=== PATIENT | female | born 1955 | race Caucasian/White ===

== ENCOUNTER → 2017-07-08 | Outpatient (CLI) | payer OTHER ==
--- NOTE | 2017-07-08 12:05 | Diagnostic Imaging Report ---
PROCEDURE: Frontal and lateral views of the chest. COMPARISON: None. INDICATIONS: BRONCHITIS, COUGH FINDINGS: Lines/tubes: None. Lungs: The lungs are well inflated and clear. There is no evidence of pneumonia or pulmonary edema. Pleura: There is no pleural effusion or pneumothorax. Heart and mediastinum: The heart and the mediastinum are normal. Bones: No acute bony abnormality. Partially imaged cervical spine fusion hardware. IMPRESSION: 1. No acute cardiopulmonary disease. Dictated by: Dayton Polk M.D. on 07/08/2017 at 12:14 Electronically approved by: Dayton Polk M.D. on 07/08/2017 at 12:14
== END ==
LOC: MAMMO 11:27
PROVIDERS: ATTEND Internal Medicine
DX: Z12.31 Encounter for screening mammogram for malignant neoplasm of breast (principal); J40 Bronchitis, not specified as acute or chronic
CPT/HCPCS: 71020; G0202

== ENCOUNTER → 2017-11-07 | Outpatient (CLI) | payer OTHER ==
--- NOTE | 2017-11-07 19:19 | Diagnostic Imaging Report ---
PROCEDURE:C-SPINE AP AND LAT WITH FLEX AND EXT COMPARISON:None. INDICATIONS:EVALUATE FUSION STATUS FINDINGS: The cervical spine is visualized in the lateral view from the skull base to T1. Status post anterior fusion of C5-C7 with intact plate and screw construct. No associated lucencies. Likely, intervertebral disc spacers, with significant fusion.. The vertebral bodies are well-aligned without significant spondylolisthesis. There are no fractures, lytic or blastic lesions. Minimal 1 mm anterolisthesis of C4 on C5 only seen on the flexion view. Vertebral body heights are maintained.. The C1/C2-odontoid interval is normal. The pre-vertebral soft tissues are normal. CONCLUSION: Status post anterior fusion C5-C7 with intact hardware and evidence of fusion. Minimal 1 mm anterolisthesis of C4 on C5 only seen on the flexion view. Blasie Raygoza M.D. Dictated by: Blaise Raygoza M.D. on 11/07/2017 at 19:21 Electronically approved by: Blaise Raygoza M.D. on 11/07/2017 at 19:21
== END ==
LOC: RAD 11:50
PROVIDERS: ATTEND Neurological Surgery
CPT/HCPCS: 72050

== ENCOUNTER → 2018-04-02 | Outpatient (CLI) | payer OTHER ==
--- NOTE | 2018-04-02 14:00 | Diagnostic Imaging Report ---
EXAM: XR CHEST 2 VIEWS DATE: 04/02/2018 1:14 PM INDICATION: Cough COMPARISON: None FINDINGS: Lines and Tubes: None Heart and Mediastinum: No acute cardiomediastinal findings. Lungs and Pleura: Ill-defined opacity left lung base. Bones and Soft Tissues: Cervical orthopedic hardware. IMPRESSION: 1. Ill-defined opacity left lung base could represent atelectasis or developing pneumonia given history. Signed by: Dr. Augustine Campbell MD on 04/02/2018 1:57 PM
== END ==
LOC: RAD 13:04
PROVIDERS: ATTEND Internal Medicine
DX: J40 Bronchitis, not specified as acute or chronic (principal)
CPT/HCPCS: 71046

== ENCOUNTER → 2018-05-27 | Outpatient (CLI) | payer OTHER ==
[2018-05-27 17:26] LABS: CREATININE, SERUM 1.03 mg/dL (0.57-1.11)
--- NOTE | 2018-05-27 19:03 | Diagnostic Imaging Report ---
EXAM: CT Chest WITH contrast 05/27/2018 4:40 PM INDICATION: ^[id number] ^[id number] COMPARISON: Chest radiograph 04/02/2018 TECHNIQUE: Chest was scanned utilizing a multidetector helical scanner from the lung apex through the level of the adrenal glands after administration of IV contrast. Coronal and sagittal reformations were obtained. IV CONTRAST: 100 mL of Isovue-370 ORAL CONTRAST: None COMPLICATIONS: None RADIATION DOSE: Total DLP: 457.4 mGy*cm Estimated effective dose: (DLP x 0.015 x size factor) mSv CTDIvol has been reviewed. It is below the limits set by the Radiation Protocol Committee (RPC). FINDINGS: LINES/ TUBES: None. LUNGS AND AIRWAYS: The lungs are unremarkable. Airways are normal. PLEURA: The pleural spaces are clear. HEART AND MEDIASTINUM: The thyroid gland is normal. No mediastinal, hilar or axillary lymphadenopathy. The heart is normal in size. There is no pericardial effusion. The thoracic aorta and pulmonary arteries are unremarkable. UPPER ABDOMEN: Cholecystectomy. BONES: Anterior fusion of the lower cervical spine, unchanged. SOFT TISSUES: Unremarkable. IMPRESSION: No abnormalities within the chest. Signed by: Dr. Haley Brink M.D. on 05/27/2018 6:59 PM
== END ==
LOC: CT 16:32
PROVIDERS: ATTEND Internal Medicine
DX: J18.9 Pneumonia, unspecified organism (principal); R91.8 Other nonspecific abnormal finding of lung field; R93.89 Abnormal findings on diagnostic imaging of other specified body structures
CPT/HCPCS: 36415; 71260; 82565; 84520

== ENCOUNTER → 2018-08-12 | Outpatient (CLI) | payer OTHER ==
[~2018-08-12] MED LIST: ALBUTEROL/IPRATROPIUM 3 ML NEB ONE
--- NOTE | 2018-08-12 11:34 | Diagnostic Imaging Report ---
CT CHEST WITHOUT CONTRAST HISTORY: Cough COMPARISON: CTs of the chest May 27, 2018, chest radiographs April 02, 2018. TECHNIQUE: CT scan of the chest WITHOUT intravenous contrast, using standard protocol. The chest was scanned utilizing a multidetector helical scanner from the apex to the level of the adrenal glands. Coronal and sagittal reformats are provided. IV CONTRAST: None, which limits evaluation of the vascular structures, mediastinum and soft tissues. RADIATION DOSE: Total DLP: 351.01 mGy*cm Dose modulation, iterative reconstruction, and/or weight based adjustment of the mA/kV was utilized to reduce the radiation dose to as low as reasonably achievable. COMPLICATIONS: None FINDINGS: Lines/tubes: None. Lungs and Airways: Right: * Stable 2 mm calcified benign granuloma at the periphery of the right lower lobe (series 3 image 75). * Interval development of subtle lower lobe peripheral nodular opacities (series 3 image 84). Left: * Interval development of subtle lower lobe peripheral nodular opacities (series 3 image 97). Pleura: No effusion or pneumothorax. Heart and mediastinum: The thyroid gland is normal. Trace pericardial fluid. Abdomen: Limited nonenhanced views of the upper abdomen. Metallic clips in the right upper quadrant of the abdomen are compatible with prior cholecystectomy. Stable small splenule adjacent to the inferior pole of the spleen. Lymph nodes: No pathologically enlarged lymph node. Vessels: Minimal scattered atherosclerotic vascular calcifications. Bones: Partially visualized anterior cervical fixation hardware. Mild multilevel degenerative disc changes. Soft tissues: Otherwise, unremarkable. IMPRESSION: Interval development of subtle bilateral lower lobe nodular densities, consider an atypical infection or aspiration. Recommend follow-up CT of the chest without contrast in 3-6 months to assess for resolution. Signed by: Dr. Juarez David D.O., M.M.M. on 08/12/2018 11:31 AM
== END ==
LOC: RESP 08:58
PROVIDERS: ATTEND Internal Medicine
DX: R05 Cough (principal)
CPT/HCPCS: 71250; 94060; 94727; 94729

== ENCOUNTER → 2018-11-12 | Outpatient (CLI) | payer OTHER ==
--- NOTE | 2018-11-12 13:39 | Diagnostic Imaging Report ---
#[id number] - [id number] #BILATERAL DIGITAL SCREENING MAMMOGRAM WITH CAD: 11/12/2018 CLINICAL: Routine screening. Comparison is made to exams dated: 07/08/2017 mammogram - [facility] and 04/15/2015 mammogram - [facility] [place]. There are scattered fibroglandular elements in both breasts. Current study was also evaluated with a Computer Aided Detection (CAD) system. No significant masses, calcifications, or other findings are seen in either breast. There has been no significant interval change. IMPRESSION: NEGATIVE There is no mammographic evidence of malignancy. A 1 year screening mammogram is recommended. The patient will be notified by letter of the results. JEFFERY ARAMBULA M.D., mc/junior:11/12/2018 12:21:40 Certified Midwife: Uzma DUMONT(R)(M), [facility] letter sent: Normal Exam Mammogram BI-RADS: 1 Negative
== END ==
LOC: MAMMO 08:44
PROVIDERS: ATTEND Internal Medicine
DX: Z12.31 Encounter for screening mammogram for malignant neoplasm of breast (principal)
CPT/HCPCS: 77067